=== PATIENT | female | born 1960 | race Asian ===

== ENCOUNTER 2020-02-25 15:23 | Outpatient (CLI) | payer OTHER | END 2020-02-25 15:24 | disposition critical access hospital (66) | LOC: EMS 15:23 | PROVIDERS: ATTEND Surgery | DX: R10.13 Epigastric pain (principal) | CPT/HCPCS: A0425; A0427 ==

== ENCOUNTER 2020-02-25 15:38 | Emergency (ER) | payer OTHER ==
[2020-02-25] MEDS ORDERED: HYDROmorphone 1 MG/ML CARPUJECT IVP STA (16:01)
--- NOTE | 2020-02-25 16:02 | ED Physician Documentation ---
PD HPI ABD PAIN - Stated complaint Stated Complaint: ABD PAIN - Chief complaint Chief Complaint: Abd Pain - History obtained from History obtained from: Patient - History of Present Illness Timing - onset: Today (She been having some GI issues recently, nothing severe more indigestion. She was diagnosed with gallstones and has an appointment to have her gallbladder out in a few weeks. Today she suddenly developed severe epigastric pain radiating up into the chest and into the back. It was associated with nausea. Pain is severe.) Review of Systems Ten Systems: 10 systems reviewed and negative Constitutional: denies: Fever, Chills Cardiac: reports: Chest pain / pressure Respiratory: denies: Dyspnea, Cough GI: reports: Abdominal Pain, Nausea. denies: Vomiting PD PAST MEDICAL HISTORY - Past Medical History Past Medical History: Yes Cardiovascular: Hypertension Endocrine/Autoimmune: Type 2 diabetes - Present Medications Home Medications: Ambulatory Orders Medication Instructions Recorded Confirmed Metoclopramide [Reglan] 10 mg PO Q6H PRN #20 tablet 02/25/20 - Allergies Allergies/Adverse Reactions: Allergies Allergy/AdvReac Type Severity Reaction Status Date / Time hydrocodone Allergy Hives Verified 02/25/20 15:50 Penicillins Allergy Hives Verified 02/25/20 15:50 - Social History Does the pt smoke?: No Smoking Status: Never smoker Does the pt drink ETOH?: No Does the pt have substance abuse?: No - Immunizations Immunizations are current?: Yes PD ED PE NORMAL - Vitals Vital signs reviewed: Yes - General General: Alert and oriented X 3, Other (She appears uncomfortable and writhing in pain) - HEENT HEENT: PERRL, EOMI - Neck Neck: Supple, no meningeal sign, No bony TTP - Cardiac Cardiac: RRR, No murmur - Respiratory Respiratory: No respiratory distress, Clear bilaterally - Abdomen Abdomen: Other (modest epipgastric TTP) - Derm Derm: Normal color, Warm and dry - Extremities Extremities: No edema, No calf tenderness / cord - Neuro Neuro: Alert and oriented X 3, Normal speech Results - Vitals Vitals: Vital Signs - 24 hr 02/25/20 02/25/20 02/25/20 15:46 15:51 18:28 Temperature 36.5 C 36.5 C Heart Rate 70 70 76 Respiratory 16 16 22 Rate Blood Pressure 134/59 H 134/59 H 179/72 H O2 Saturation 100 100 99 Oxygen O2 Source Room air - EKG (time done) 1650 Rate: Rate (enter#) (69) Rhythm: NSR [place]: Normal Intervals: Normal [place] QRS: Normal Ischemia: No: ST elevation c/w ischemia, ST depression Computer interpretation: Agree with computer - Labs Labs: Laboratory Tests 02/25/20 02/25/20 02/25/20 16:02 16:02 16:02 WBC 7.9 RBC 4.37 Hgb 12.0 Hct 37.6 MCV 86.0 MCH 27.5 MCHC 31.9 L RDW 12.9 Plt Count 197 MPV 10.0 Neut # (Auto) 3.5 Lymph # (Auto) 3.6 H Hartley # (Auto) 0.5 Eos # (Auto) 0.1 Baso # (Auto) 0.0 Absolute Nucleated RBC 0.00 Nucleated RBC % 0.0 Sodium 139 Potassium 3.3 L Chloride 104 Carbon Dioxide 22 Anion Gap 13.0 BUN 16 Creatinine 0.8 Estimated GFR (MDRD) 74 L Glucose 140 H Calcium 8.9 Total Bilirubin 0.9 AST 101 H ALT 58 Alkaline Phosphatase 63 Troponin I High Sens 4.2 Total Protein 7.2 Albumin 4.0 Globulin 3.2 Albumin/Globulin Ratio 1.3 Lipase 48 Urine Color Urine Clarity Urine pH Ur Specific Reagan Urine Protein Urine Glucose (UA) Urine Ketones Urine Occult Blood Urine Nitrite Urine Bilirubin Urine Urobilinogen Ur Leukocyte Esterase Ur Microscopic Review Urine Culture Comments 02/25/20 16:13 WBC RBC Hgb Hct MCV MCH MCHC RDW Plt Count MPV Neut # (Auto) Lymph # (Auto) Hartley # (Auto) Eos # (Auto) Baso # (Auto) Absolute Nucleated RBC Nucleated RBC % Sodium Potassium Chloride Carbon Dioxide Anion Gap BUN Creatinine Estimated GFR (MDRD) Glucose Calcium Total Bilirubin AST ALT Alkaline Phosphatase Troponin I High Sens Total Protein Albumin Globulin Albumin/Globulin Ratio Lipase Urine Color YELLOW Urine Clarity CLEAR Urine pH 8.5 H Ur Specific Reagan 1.015 Urine Protein TRACE Urine Glucose (UA) >=1000 H Urine Ketones NEGATIVE Urine Occult Blood NEGATIVE Urine Nitrite NEGATIVE Urine Bilirubin NEGATIVE Urine Urobilinogen 0.2 (NORMAL) Ur Leukocyte Esterase NEGATIVE Ur Microscopic Review NOT INDICATED Urine Culture Comments NOT INDICATED - Rads (name of study) Abd sono Radiology: Final report received (polyp, no stones) CTA C/A/P Radiology: EMP read contemporaneously (NAD) PD MEDICAL DECISION MAKING - ED course ED course: 60-year-old woman with longstanding diabetes presents with sudden onset epigastric pain radiating to the back and chest couple hours after eating. She appeared very uncomfortable but examination was benign. She was pain-free after a milligram of Dilaudid. Previous work-up at another facility was suggestive of gallstones and she is scheduled for a cholecystectomy. We did not find any gallstones tonight, just a gallbladder polyp. Given the concern for persistent vascular illness, CT angiography was done without evidence of dissection or aneurysm but I note that her stomach is still large despite not having eaten since about 1030 this morning. To me that is suggestive of diabetic gastroparesis and she felt much better after Reglan and passed a p.o. challenge. Departure - Departure Disposition: Home, Self Care Clinical Impression: Abdominal pain Instructions: Abdominal Pain Prescriptions: Metoclopramide [Reglan] 10 mg PO Q6H PRN #20 tablet PRN Reason: nausea or headache Comments: Your work-up today demonstrates an ultrasound showing potentially a gallbladder polyp but we do not see any gallstones. Your CAT scan of the chest abdomen and pelvis looked normal, although to my eye I do note still persistent amount of fluid and food in the stomach despite you not having eaten in 7 hours. To me this is most consistent with diabetic gastroparesis since you have been diabetic for approximately 20 years. I think prior to getting her gallbladder out, out of an abundance of caution, you should have a gastric emptying study and an upper endoscopy. Please talk with your primary care physician about this.
[2020-02-25 16:07] LABS: BASOPHILS % (AUTO) 0.1 %; EOSINOPHILS # (AUTO) 0.1 10^3/uL (0.0-0.7); EOSINOPHILS % (AUTO) 1.7 %; LYMPHOCYTES # (AUTO) 3.6 10^3/uL (1.5-3.5); LYMPHOCYTES % (AUTO) 45.9 %; MEAN CORPUSCULAR HEMOGLOBIN 27.5 pg (27.0-31.0); MEAN CORPUSCULAR HGB CONC 31.9 g/dL (32.0-36.0); MONOCYTES # (AUTO) 0.5 10^3/uL (0.0-1.0); MONOCYTES % (AUTO) 6.9 %; NEUTROPHILS # (AUTO) 3.5 10^3/uL (1.5-6.6); NEUTROPHILS % (AUTO) 44.5 %; PLT - PLATELET COUNT 197 10^3/uL (130-450); RED BLOOD COUNT 4.37 10^6/uL (4.20-5.40); RED CELL DISTRIBUTION WIDTH 12.9 % (12.0-15.0); WHITE BLOOD COUNT 7.9 x10^3/uL (4.8-10.8)
[2020-02-25 16:21] LABS: BILIRUBIN,URINE NEGATIVE (NEGATIVE); CLARITY,URINE CLEAR (CLEAR); GLUCOSE, URINE (UA) >=1000 mg/dL (NEGATIVE); KETONES,URINE (UA) NEGATIVE (NEGATIVE); LEUKOCYTE ESTERASE, URINE NEGATIVE (NEGATIVE); NITRITE,URINE NEGATIVE (NEGATIVE); OCCULT BLOOD,URINE NEGATIVE (NEGATIVE); PH,URINE 8.5 PH (5.0-7.5); PROTEIN,URINE TRACE mg/dL (NEGATIVE); UROBILINOGEN,URINE 0.2 (NORMAL) E.U./dL (NORMAL)
[2020-02-25 16:21] LABS: ALBUMIN/GLOBULIN RATIO 1.3 (1.0-2.2); BILIRUBIN,TOTAL 0.9 mg/dL (0.2-1.0); CALCIUM 8.9 mg/dL (8.5-10.3); CREATININE 0.8 mg/dL (0.4-1.0); TOTAL PROTEIN 7.2 g/dL (6.7-8.2)
[2020-02-25] MEDS ORDERED: IOVERSOL 320 100 ML VIAL IVP ONE ×2 (17:43→19:50)
[2020-02-25] MEDS ORDERED: ONDANSETRON 4 MG/2 ML VIAL IVP STA ×2 (18:02→19:47)
--- NOTE | 2020-02-25 18:16 | Ultrasound Report ---
Reason: epigastric/RUQ pain Procedure Date: 02/25/2020 Accession Number: [id number] / [id number] Procedure: US - Abdomen Limited CPT Code: Final Report FULL RESULT: EXAM: ABDOMEN ULTRASOUND LIMITED, RUQ EXAM DATE: 02/25/2020 05:43 PM. CLINICAL HISTORY: Epigastric/RUQ pain. COMPARISON: None. TECHNIQUE: Real-time scanning was performed with static images obtained. FINDINGS: Liver: Normal in size with mildly hyperechoic echotexture. 17.3 cm. Main portal vein flow: Hepatopetal. Gallbladder: Nonmobile 1.1 cm echogenic focus, likely a polyp. No stones, wall thickening, or sonographic Roman's sign. Biliary System: CBD measures 5 mm. No intrahepatic or extrahepatic ductal dilatation. Other: The visualized pancreas and right kidney are unremarkable. No free fluid. IMPRESSION: Nonmobile 1.1 cm echogenic focus, likely a gallbladder polyp. No cholelithiasis or cholecystitis. RAD[facility]
[2020-02-25] MEDS ORDERED: METOCLOPRAMIDE 10 MG/2 ML VIAL IVP STA (18:32)
--- NOTE | 2020-02-25 18:55 | CT Report ---
Reason: back/chest/abd pain Procedure Date: 02/25/2020 Accession Number: [id number] / [id number] Procedure: CT - ANGIO ABDOMEN/PELVIS W CPT Code: Final Report FULL RESULT: EXAM: CT ANGIOGRAM ABDOMEN AND PELVIS WITH CONTRAST EXAM DATE: 02/25/2020 06:24 PM. CLINICAL HISTORY: Back/chest/abd pain. COMPARISONS: None. TECHNIQUE: Routine helical CT angiogram imaging was performed through the abdomen and pelvis in the arterial phase. IV contrast: OPTIRAY 320. Enteric contrast: No. Reconstructions: Coronal, sagittal, and 3D MIP reconstructions. In accordance with CT protocol optimization, one or more of the following dose reduction techniques were utilized for this exam: automated exposure control, adjustment of mA and/or KV based on patient size, or use of iterative reconstructive technique. FINDINGS: Vasculature: There is mild atherosclerotic plaque in the aorta and iliac arteries. No aneurysm. Normal flow of contrast. The visualized mesenteric and solid organ vascular structures are also within normal limits. Lung Bases: Normal. Abdominal Solid Organs: Normal. The liver, spleen, pancreas, adrenal glands, gallbladder and kidneys are normal in size and demonstrate no masses or abnormal enhancement. Peritoneal Cavity: Normal. No free fluid, free air, or acute inflammatory process. Pelvic Organs: Normal. The bladder and visualized pelvic organs are within normal limits. Bones: Changes of DISH. Other: None. IMPRESSION: 1. Atherosclerosis without dissection or occlusion. No appreciable aneurysm. 2. No acute pathology. RADIA
--- NOTE | 2020-02-25 19:00 | CT Report ---
Reason: CHest/abd pain to back/ aorta protocol Procedure Date: 02/25/2020 Accession Number: [id number] / [id number] Procedure: CT - ANGIO CHEST W/WO CPT Code: Final Report FULL RESULT: EXAM: CT ANGIOGRAM CHEST EXAM DATE: 02/25/2020 06:24 PM. CLINICAL HISTORY: Chest/abd pain to back/ aorta protocol. COMPARISON: None. TECHNIQUE: Routine helical imaging was performed through the chest in the pulmonary arterial phase. IV Contrast: 100 cc OPTIRAY 320. Reconstructions: Coronal 3-D MIP reconstructions. Sagittal and coronal. In accordance with CT protocol optimization, one or more of the following dose reduction techniques were utilized for this exam: automated exposure control, adjustment of mA and/or KV based on patient size, or use of iterative reconstructive technique. FINDINGS: Thoracic aorta: No thoracic aortic dissection or aneurysm. No mediastinal hematoma. Pulmonary Arteries: Diagnostic quality: Adequate through the segmental arteries. No evidence for acute or chronic pulmonary emboli. RV/LV is within normal limits. There is no interventricular septal bowing. There is no reflux of contrast material in the IVC. Lungs/Pleura: No consolidation, nodules, or edema. No effusions or pneumothorax. Mediastinum: Normal. No cardiac enlargement or adenopathy. Thoracic Aorta: Unremarkable. Upper Abdomen: Unremarkable. Other: None. IMPRESSION: No thoracic aortic dissection or aneurysm. No mediastinal hematoma. No pulmonary emboli. RADIA
[2020-02-25] MEDS ORDERED: ONDANSETRON ODT 4 MG TABLET TL STA (19:59)
[2020-02-25 20:05] VITALS: BP 142/62
[2020-02-25] MEDS ORDERED: ONDANSETRON ODT 4 MG Prepack 2 TL STA (20:17)
== END 2020-02-25 20:37 | disposition home or self-care (01) ==
LOC: EDUNIT# → ED 15:38
DX: R10.13 Epigastric pain (principal); R07.9 Chest pain, unspecified; M54.9 Dorsalgia, unspecified; R11.0 Nausea; K82.4 Cholesterolosis of gallbladder; E11.9 Type 2 diabetes mellitus without complications; I10 Essential (primary) hypertension
CPT/HCPCS: 36415; 71275; 74174; 76705; 80053; 81003; 83690; 84484; 85025; 93005; 96374; 96375; 99284; J1170; J2765; Q0162; Q9967; 81001; 87086